=== PATIENT | male | born 1970 | race Caucasian/White ===

== ENCOUNTER 2018-05-27 17:23 | Emergency (ER) | payer OTHER ==
[~2018-05-27] VITALS: Ht 162.6 cm; Wt 84.8 kg
[2018-05-27 17:38] VITALS: BP 135/76; Ht 162.6 cm; Wt 84.8 kg
== END 2018-05-27 18:23 | disposition home or self-care (01) ==
LOC: ED 17:23
DX: S46.212A Strain of muscle, fascia and tendon of other parts of biceps, left arm, initial encounter (principal); X50.0XXA Overexertion from strenuous movement or load, initial encounter; X50.9XXA Other and unspecified overexertion or strenuous movements or postures, initial encounter; Y93.89 Activity, other specified; Y92.89 Other specified places as the place of occurrence of the external cause; Y99.8 Other external cause status

== ENCOUNTER 2019-09-09 14:16 | Observation (INO) | payer OTHER ==
[~2019-09-09] VITALS: Ht 162.6 cm; Wt 83.9 kg
[2019-09-09 16:09] VITALS: Ht 162.6 cm; Wt 83.9 kg
[2019-09-09 17:44] LABS: BASOPHIL % 0.6 % (0-2); RED CELL DISTRIBUTION WIDTH 13.1 % (11.5-14.5)
[2019-09-09 17:45] LABS: PLATELET COUNT 113 x10^3mcL (130-400)
[2019-09-09 18:04] LABS: CARBON DIOXIDE 28.2 mmol/L (21-32); CHLORIDE SERUM 95 mmol/L (98-107); CREATININE SERUM 1.1 mg/dL (0.7-1.3); GFR1 > 60 mL/min; GLUCOSE SERUM 124 mg/dL (74-106); POTASSIUM SERUM 3.7 mmol/L (3.5-5.1); SODIUM SERUM 133 mmol/L (136-145)
[2019-09-09 18:09] LABS: ALKALINE PHOSPHATASE 88 U/L (46-116); ALT/SGPT 148 U/L (16-63); AST/SGOT 106 U/L (15-37); BILIRUBIN TOTAL 0.55 mg/dL (0.20-1.00); TOTAL PROTEIN, SERUM 8.4 g/dL (6.4-8.2)
[2019-09-09] MEDS ORDERED: LEVAQUIN750 MG PO (21:40)
[2019-09-09] MEDS ORDERED: SIMVASTATIN40 M1 PO (21:40)
[2019-09-09] MEDS ORDERED: PEPCID20 MG PO (21:40)
[2019-09-09] MEDS ORDERED: COLCHICINE0.6 M1 PO (22:06)
[2019-09-09 22:42] VITALS: BP 135/86
[2019-09-10 00:30] LABS: microscopic required? YES; urine erythrocyte NEGATIVE (NEGATIVE)
[2019-09-10 00:45] LABS: AMPHETAMINE QUAL UR NONE DETECTED (See below)
[2019-09-10 00:45] LABS: CHOLESTEROL/HDL RATIO 3.7; MAGNESIUM 2.2 mg/dL (1.8-2.4); PHOSPHOROUS 2.8 mg/dL (2.5-4.9); T3 TOTAL 0.96 ng/mL
[2019-09-10 00:58] LABS: FREE T4 0.75 ng/dL (0.76-1.46); FREE THYROXINE INDEX 1.8 ug/dL (1.4-4.5); T4(THYROXINE) 6.9 ug/dL (4.7-13.3)
[2019-09-10 06:03] VITALS: BP 111/73
[2019-09-10 06:11] LABS: BASOPHIL % 0.4 % (0-2); RED CELL DISTRIBUTION WIDTH 13.2 % (11.5-14.5)
[2019-09-10 06:21] LABS: CALCIUM 8.5 mg/dL (8.5-10.1); CHLORIDE SERUM 98 mmol/L (98-107); GFR1 > 60 mL/min; GLUCOSE SERUM 104 mg/dL (74-106); MAGNESIUM 2.1 mg/dL (1.8-2.4); PHOSPHOROUS 3.7 mg/dL (2.5-4.9); POTASSIUM SERUM 3.3 mmol/L (3.5-5.1); SODIUM SERUM 133 mmol/L (136-145)
[2019-09-10 06:27] LABS: PLATELET COUNT 108 x10^3mcL (130-400)
[2019-09-10 07:20] VITALS: BP 119/78
[2019-09-10 11:15] VITALS: BP 119/78
[2019-09-10 11:46] VITALS: BP 105/69
[2019-09-10] MEDS ORDERED: IBUPROFEN400 MG PO ×2 (12:05→14:05)
[2019-09-10] MEDS ORDERED: SUMATRIPTAN SUC50 M1 PO (12:15)
[2019-09-10] MEDS ORDERED: AUGMENTIN 875-1 EACH PO (12:15)
[2019-09-10] MEDS ORDERED: IMITREX50 MG PO (14:05)
[2019-09-10] MEDS ORDERED: AUG500 PO (14:05)
== END 2019-09-10 14:22 | disposition home or self-care (01) ==
LOC: ED 14:16 → MU 21:46
PROVIDERS: Emergency Medicine; Family Medicine; ADMIT Internal Medicine
DX: R51 Headache (principal); D72.829 Elevated white blood cell count, unspecified; E87.1 Hypo-osmolality and hyponatremia; E87.8 Other disorders of electrolyte and fluid balance, not elsewhere classified; R74.0 Nonspecific elevation of levels of transaminase and lactic acid dehydrogenase [LDH]; E78.5 Hyperlipidemia, unspecified
CPT/HCPCS: 84439; 87804; 97116-GP; G0378; J0780; J1100; J1885; J2001; J7030; Q0092